=== PATIENT | male | born 1945 | race American Indian/Alaskan Native ===

== ENCOUNTER 2018-06-01 00:06 | Emergency (ER) | payer MEDICARE ==
[2018-06-01] MEDS ORDERED: NACL 0.9% 0 ML IR ONE (01:44)
[2018-06-01] MEDS ORDERED: MORPHINE IV ONE (02:38)
[2018-06-01] MEDS ORDERED: BOOSTRIX IM ONE (02:38)
[2018-06-01] MEDS ORDERED: NACL 0.9% 500 ML IR ONE (02:40)
[2018-06-01] MEDS ORDERED: ANCEF/NS 1 GM/50 ML 1 GM/50 ML BAG IV ONE (03:00)
[2018-06-01] MEDS ORDERED: NACL 0.9% IR ONE (03:07)
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
--- NOTE | 2018-06-01 03:51 | XRay Report ---
PROCEDURE: RIGHT FOREARM TECHNIQUE: RIGHT forearm radiographs, AP and lateral views. CPT 91702 HISTORY: Trauma COMPARISONS: None . FINDINGS: Fracture (s) and/or Dislocation(s): None . Joint space(s): Normal . Soft tissues: There is soft tissue swelling and subcutaneous air surrounding the distal forearm. Bone mineralization: Normal . Foreign bodies: None . IMPRESSION: There is no fracture or malalignment. .There is soft tissue swelling and subcutaneous ai r surrounding the distal forearm. This document is electronically signed by Charlie Galaviz MD., June 01 2018 03:49:25 AM ET
[2018-06-01 05:25] VITALS: BP 130/87
== END 2018-06-01 09:02 | disposition home or self-care (01) ==
LOC: ED 00:06
DX: S51.811A Laceration without foreign body of right forearm, initial encounter (principal); I10 Essential (primary) hypertension; F17.200 Nicotine dependence, unspecified, uncomplicated; X99.1XXA Assault by knife, initial encounter; Y93.89 Activity, other specified; Y92.090 Kitchen in other non-institutional residence as the place of occurrence of the external cause; Y99.8 Other external cause status
CPT/HCPCS: 12002; 73090; 90471; 90715; 96365; 96375; 99283; J0690; J2270